=== PATIENT | male | born 1935 | race African-American/Black ===

== ENCOUNTER 2018-12-08 08:24 | Outpatient (CLI) | payer MEDICARE ==
--- NOTE | 2018-12-08 09:19 | MRI ---
MRI of lumbar spine: 11/30/2018 COMPARISON: 09/26/2014 HISTORY: Spinal stenosis, low back pain radiating down bilateral lower extremities TECHNIQUE: Multiplanar multisequence MR imaging of the lumbar spine obtained without contrast FINDINGS: The sagittal STIR imaging demonstrates no focal area of osseous marrow edema. 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 Large incompletely imaged T2 hyperintense lesions emanating from bilateral kidneys suggesting large r enal cysts. Assuming 5 lumbar type vertebral bodies, conus medullaris terminates at the L1 level. T12-L1: Bilateral facet hypertrophy. There is disc space narrowing and disc desiccation with mild dis c bulge and mild central canal stenosis. Mild bilateral neural foraminal stenosis. L1-2: Bilateral facet hypertrophy. Disc space narrowing and mild disc bulge present with no central c anal or neural foraminal stenosis. L2-3: Prominent bilateral facet hypertrophy. There is disc space narrowing and disc desiccation with mild disc bulge causing moderate stable central canal stenosis. Mild bilateral neural foraminal stenosis, right greater than left. L2-3: There is disc space narrowing and disc desiccation. There is prominent bilateral facet hypertro phy. There is severe central canal stenosis, worsened when compared to the prior examination. This is exacerbated by a posterior midline 6 mm new synovial cyst. Mild bilateral neural foraminal stenosi s is noted, right greater than left. L3-4: Bilateral facet hypertrophy noted. Disc space narrowing, disc desiccation, and mild disc bulge. No significant central canal stenosis. Moderate/severe stable bilateral neural foraminal stenosis. L5-S1: Disc space narrowing and disc desiccation. No central canal stenosis. Moderate/severe bilatera l neural foraminal stenosis. Partially imaged sigmoid diverticulosis. IMPRESSION: Prominent multilevel lumbar spine degenerative change as detailed above. Transcribed Date/Time: 12/08/2018 9:49 AM
== END 2018-12-08 08:25 | disposition home or self-care (01) ==
LOC: SCSMRI 08:24
PROVIDERS: ATTEND Specialist
DX: M48.062 Spinal stenosis, lumbar region with neurogenic claudication (principal); M54.17 Radiculopathy, lumbosacral region; M99.83 Other biomechanical lesions of lumbar region; M47.26 Other spondylosis with radiculopathy, lumbar region
CPT/HCPCS: 72148